=== PATIENT | male | born 1970 | race Hispanic/Latino ===

== ENCOUNTER 2017-04-12 08:26 | Observation (INO) | payer BC ==
[2017-04-12 08:26] VITALS: BMI 30.8
[2017-04-12] MEDS ORDERED: Morphine 2 mg/ml ISec IVP STA ×3 (08:55→12:48)
--- NOTE | 2017-04-12 08:55 | ED PDOC ---
Arrival/HPI - General Chief Complaint: Abdominal Pain Time Seen by Provider: 04/12/17 08:35 - History of Present Illness Narrative History of Present Illness (Text): 04/12/17 08:35 Tyler Garcia is a 46 year old male, whose past medical history includes a kidney stone (2013), who presents to the emergency department of sudden onset of RLQ pain radiating to his lateral lower back since this morning. Patient states that he also experiences associated nausea. Patient states pain is sharp , stabbing, constant. Denies chest pain or shortness of breath. Denies numbness or weakness. Denies testicular pain or swelling. Denies hematuria. Denies trauma. Also reports sore throat for three days. Denies cough or hemoptysis. PMD: None Time/Duration: 1-3 hours Symptom Onset: Gradual Symptom Course: Unchanged Severity Level: Moderate Activities at Onset: Rest Context: Home Past Medical History - Provider Review Nursing Documentation Reviewed: Yes - Infectious Disease Hx of Infectious Diseases: None - Past Medical History Past Medical History: No Previous - Cardiac Hx Pacemaker: No - Neurological Hx Paralysis: No - Renal Hx Kidney Stones: Yes - Hematological/Oncological Hx Blood Transfusions: No - Musculoskeletal/Rheumatological Hx Musculoskeletal Disorders: No - Gastrointestinal Hx Gastroesophageal Reflux: Yes - Psychiatric Hx Emotional Abuse: No Hx Physical Abuse: No Hx Substance Use: No - Past Surgical History Past Surgical History: No Previous - Anesthesia Hx Anesthesia Reactions: No Hx Malignant Hyperthermia: No - Suicidal Assessment Feels Threatened In Home Enviroment: No Family/Social History - Physician Review Nursing Documentation Reviewed: Yes Family/Social History: No Known Family HX Smoking Status: Heavy Smoker > 10 Cigarettes Daily Hx Alcohol Use: No Hx Substance Use: No Allergies/Home Meds Allergies/Adverse Reactions: Allergies No Known Allergies Allergy (Verified 04/12/17 08:42) Review of Systems - Review of Systems Constitutional: absent: Fevers, Night Sweats Eyes: absent: Vision Changes ENT: Sore Throat, Sinus Congestion. absent: Hearing Changes, Voice Changes, Rhinorrhea Respiratory: absent: SOB Cardiovascular: absent: Chest Pain Gastrointestinal: Abdominal Pain (RLQ radiating to lateral back) Genitourinary Male: absent: Dysuria, Urinary Output Changes Musculoskeletal: Back Pain Skin: absent: Rash Neurological: absent: Headache Endocrine: absent: Diaphoresis Hemo/Lymphatic: absent: Adenopathy Psychiatric: absent: Anxiety Physical Exam - Physical Exam Narrative Physical Exam (Text): 04/12/17 08:35 Head: Atraumatic. Normocephalic. Eyes: PERRL. EOMI. Conjunctivae are not pale. ENT: Mild pharyngeal erythema. Mucous membranes are moist and intact. No stridor. Neck: Supple. Full ROM. No JVD. No lymphadenopathy. Cardiovascular: Regular rate. Regular rhythm. No murmurs, rubs, or gallops. Distal pulses are 2+ and symmetric. Pulmonary/Chest: No evidence of respiratory distress. Clear to auscultation bilaterally. No wheezing, rales or rhonchi. Abdominal: Reducible Abdominal hernia. No inguinal incarceration. No pulsatile masses. No palpable RLQ pain. No rebound or guarding. Back: No CVA tenderness. No midline tenderness or rash. Extremities: No edema. No cyanosis. No clubbing. Full range of motion in all extremities. No calf tenderness. Skin: Skin is warm and dry. No petechiae. No purpura. Neurological: Alert, awake, and oriented. Motor and sensory exam intact. Psychiatric: Good eye contact. Normal interaction, affect, and behavior. Vital Signs Reviewed: Yes Vital Signs Temp Pulse Resp BP Pulse Ox 04/12/17 15:00 87 17 151/90 H 100 04/12/17 13:00 98.8 F 59 L 17 165/84 H 100 04/12/17 11:14 98.3 F 56 L 18 145/86 98 04/12/17 08:42 97.7 F 69 18 143/93 H 98 Temperature: Afebrile Blood Pressure: Hypertensive Pulse: Regular Respiratory Rate: Normal Appearance: Positive for: Non-Toxic, Uncomfortable Pain Distress: Severe Mental Status: Positive for: Alert and Oriented X 3 Medical Decision Making ED Course and Treatment: 04/12/17 08:35 Impression: 46 year old male complaining of constant RLQ pain radiating to his lateral lower back since this morning. Differential Diagnosis include but are not limited to: Renal Colic vs. Pharyngitis Plan: -- CT Abdomen -- IV pain medication -- Reassess and disposition Prior Visits: Notes and results from previous visits were reviewed. Patient last seen in ED on 05/23/14 for 2 days duration of dull left flank pain. Patient was discharged home. Progress Notes: Patient in severe pain on arrival, not palpable, described as sudden onset. Radiates to right lower back. He is able to urinate, but pain is constant and severe. Treatment plan reviewed with patient. IV established as well as iv morphine, iv toradol and zofran given. 04/12/17 10:[address]: Creator : Rafael Parra MD FINDINGS: LOWER THORAX:Unremarkable. LIVER:Fatty infiltration. No gross lesion or ductal dilatation. GALLBLADDER AND BILE DUCTS:Unremarkable. PANCREAS:Unremarkable. No gross lesion or ductal dilatation. SPLEEN:Unremarkable. ADRENALS:Unremarkable. No mass. KIDNEYS AND URETERS:Punctate nonobstructive bilateral nephrolithiasis with minimal right hydronephrosis with an obstructive calculus in the distal right ureter measuring roughly 3 millimeters. VASCULATURE:Unremarkable. No aortic aneurysm. BOWEL:Unremarkable. No obstruction. No gross mural thickening. APPENDIX:Unremarkable. Normal appendix. PERITONEUM:Unremarkable. No free fluid. No free air. LYMPH NODES:Unremarkable. No enlarged lymph nodes. BLADDER:Unremarkable. REPRODUCTIVE:Unremarkable. BONES:No acute fracture. OTHER FINDINGS:None. IMPRESSION: Minimal right hydroureteronephrosis with a 3 millimeter obstructive calculus in the distal right ureter. 04/12/17 10:50 On reassessment, patient still has 7/10 pain. Additional pain medications will be given. Will continue to observe symptoms. Patient placed in ED observation. - Lab Interpretations I have reviewed the lab results: Yes - RAD Interpretation Officer Captain: Radiologist - Medication Orders Current Medication Orders: Sodium Chloride (Sodium Chloride 0.9%) 1,000 mls @ 100 mls/hr IV .Q10H JENN Last Admin: 04/12/17 09:09 Dose: 100 mls/hr Discontinued Medications Sodium Chloride (Sodium Chloride 0.9%) 1,000 mls @ 1,000 mls/hr IV .Q1H STA Stop: 04/12/17 13:47 Last Admin: 04/12/17 13:07 Dose: 1,000 mls/hr Ketorolac Tromethamine (Toradol) 30 mg IVP ONCE ONE Stop: 04/12/17 08:56 Last Admin: 04/12/17 09:08 Dose: 30 mg Re-Assess: [facility] Pain Assessment Document 04/12/17 10:08 APRIL (Rec: 04/12/17 11:02 APRIL [id number]) Pain Reassessment Is this a pain reassessment? Yes Presence of Pain Presence of Pain Yes Pain Scale Used Pain Scale Used Numeric Morphine Sulfate (Morphine) 2 mg IVP STAT STA Stop: 04/12/17 08:56 Last Admin: 04/12/17 09:08 Dose: 2 mg Re-Assess: [facility] Pain Assessment Document 04/12/17 10:08 ALA (Rec: 04/12/17 11:02 APRIL [id number]) Pain Reassessment Is this a pain reassessment? Yes Presence of Pain Presence of Pain Yes Pain Scale Used Pain Scale Used Numeric Morphine Sulfate (Morphine) 4 mg IV STAT STA Stop: 04/12/17 10:54 Last Admin: 04/12/17 11:00 Dose: 4 mg Re-Assess: [facility] Pain Assessment Document 04/12/17 12:00 ALA (Rec: 04/12/17 12:48 ALA [id number]) Pain Reassessment Is this a pain reassessment? Yes Morphine Sulfate (Morphine) 2 mg IVP STAT STA Stop: 04/12/17 12:49 Last Admin: 04/12/17 13:07 Dose: 2 mg Ondansetron HCl (Zofran Inj) 4 mg IVP ONCE ONE Stop: 04/12/17 08:56 Last Admin: 04/12/17 09:09 Dose: 4 mg ED OBSERVATION Discharge: Yes Date of observation admission: 04/12/17 Time of observation admission: 08:30 - Observation admission statement Patient is being placed in observation because:: Patient with severe flank and lower abdominal pain, history of kidney stones, for ct and serial exams. - Goals of Observation Goals of observation are:: Pain control, evaluation of ct imaging and re-evaluation of symptoms after iv pain medication. - Progress Note Progress Note: 04/12/17 12:44 Persistent but improved pain, will continue to observe. 04/12/17 15:34 Pain resolved. Tolerating po. CT findings and treatment plan reviewed with patient. Advised smoking cessation as well as need for follow-up with urologist. Will d/c with antibiotics as well for mild pharyngitis. Neck supple. Afebrile. Lungs clear. - Scribe Statement The provider has reviewed the documentation as recorded by the Vineet Zhou Provider Scribe Attestation: All medical record entries made by the Vineet were at my direction and personally dictated by me. I have reviewed the chart and agree that the record accurately reflects my personal performance of the history, physical exam, medical decision making, and the department course for this patient. I have also personally directed, reviewed, and agree with the discharge instructions and disposition. Disposition/Present on Arrival - Present on Arrival Any Indicators Present on Arrival: No History of DVT/PE: No History of Uncontrolled Diabetes: No Urinary Catheter: No History of Decub. Ulcer: No History Surgical Site Infection Following: None - Disposition Have Diagnosis and Disposition been Completed?: Yes Diagnosis: Renal colic on right side, Pharyngitis Disposition: HOME/ ROUTINE Disposition Time: 15:00 Patient Plan: Discharge Patient Problems: Current Active Problems Problem Status Onset Pharyngitis Acute Renal colic on right side Acute Condition: GOOD
[2017-04-12] MEDS ORDERED: Sodium Chloride 0.9% 1,000 ML IV SCH (09:00)
[2017-04-12 09:13] LABS: ADD MANUAL DIFF? NO
[2017-04-12 09:18] LABS: BASO # 0.06 K/mm3 (0.0-2.0); BASO % 0.6 % (0.0-3.0); EOS # 0.1 (0.0-0.7); EOS % 0.8 % (1.5-5.0); GRAN # 6.48 (1.4-6.5); LYMPH # 1.9 (1.2-3.4); LYMPH % 20.2 % (22.0-35.0); MEAN CELL VOLUME 90.7 fL (80.0-105.0); MEAN CORPUSCULAR HGB CONC 35.3 g/dl (31.0-37.0); MONO # 0.8 (0.1-0.6); MONO % 8.4 % (1.0-6.0); PLATELET COUNT 279 10^3/uL (120.0-450.0); WHITE BLOOD COUNT 9.3 10^3/ul (4.5-11.0)
[2017-04-12 09:27] LABS: ALB/GLOB RATIO 1.2 (1.1-1.8); ALKALINE PHOSPHATASE 90 U/L (38-133); ALT/SGPT 136 U/L (7-56); AST/SGOT 83 U/L (15-59); BILIRUBIN,TOTAL 0.6 mg/dL (0.2-1.3); BLOOD UREA NITROGEN 12 mg/dL (7-21); CALCIUM 9.7 mg/dL (8.4-10.5); CARBON DIOXIDE 23 mmol/L (21-33); CHLORIDE 106 mmol/L (98-107); GFR AFRICAN-AMERICAN > 60; GLUCOSE,RANDOM 112 mg/dL (70-110); POTASSIUM 4.5 mmol/L (3.6-5.0); SODIUM 141 mmol/L (132-148); TOTAL PROTEIN 8.5 g/dL (5.8-8.3)
[2017-04-12 09:39] LABS: PH,URINE 5.5 (4.7-8.0); URINE BILIRUBIN NEGATIVE (NEGATIVE); URINE BLOOD MODERATE (NEGATIVE); URINE GLUCOSE (UA) NEGATIVE (NEGATIVE); URINE KETONE NEGATIVE (NEGATIVE); URINE LEUKOCYTE ESTERASE NEGATIVE Leu/uL (NEGATIVE); URINE PROTEIN TRACE mg/dL (<30 mg/dL); URINE UROBILINOGEN 0.2 E.U./dL (<1 E.U./dL)
[2017-04-12 09:43] LABS: URINE APPEARANCE SL CLOUDY (CLEAR); URINE COLOR YELLOW (YELLOW)
[2017-04-12 09:50] LABS: URINE WBC 0 - 2 /hpf (0-6)
--- NOTE | 2017-04-12 09:58 | CT ---
PROCEDURE: CT Abdomen and Pelvis without intravenous contrast HISTORY: right flank pain COMPARISON: 05/23/2014. TECHNIQUE: Technique. Contrast Dose: Radiation dose: Total exam DLP = 1140 mGy-cm. This CT exam was performed using one or more of the following dose reduction techniques: Automated exposure control, adjustment of the mA and/or kV according to patient size, and/or use of iterative reconstruction technique. FINDINGS: LOWER THORAX: Unremarkable. LIVER: Fatty infiltration. No gross lesion or ductal dilatation. GALLBLADDER AND BILE DUCTS: Unremarkable. PANCREAS: Unremarkable. No gross lesion or ductal dilatation. SPLEEN: Unremarkable. ADRENALS: Unremarkable. No mass. KIDNEYS AND URETERS: Punctate nonobstructive bilateral nephrolithiasis with minimal right hydronephrosis with an obstructive calculus in the distal right ureter measuring roughly 3 millimeters. VASCULATURE: Unremarkable. No aortic aneurysm. BOWEL: Unremarkable. No obstruction. No gross mural thickening. APPENDIX: Unremarkable. Normal appendix. PERITONEUM: Unremarkable. No free fluid. No free air. LYMPH NODES: Unremarkable. No enlarged lymph nodes. BLADDER: Unremarkable. REPRODUCTIVE: Unremarkable. BONES: No acute fracture. OTHER FINDINGS: None. IMPRESSION: Minimal right hydroureteronephrosis with a 3 millimeter obstructive calculus in the distal right ureter.
[2017-04-12] MEDS ORDERED: Morphine 4 mg/ml ISec IV STA (10:53)
[2017-04-12] MEDS ORDERED: Sodium Chloride 0.9% 1,000 ML IV STA (12:48)
[2017-04-12 13:57] VITALS: RESP 17; TEMP 98.8; O2SAT 100
[2017-04-12 15:38] VITALS: BP 151/90; PULSE 87
== END 2017-04-12 15:36 | disposition home or self-care (01) ==
LOC: ED 08:26 → EROBSV 08:30
PROVIDERS: ADMIT Emergency Medicine; ATTEND Emergency Medicine
DX: N23 Unspecified renal colic (principal); J02.9 Acute pharyngitis, unspecified; F17.210 Nicotine dependence, cigarettes, uncomplicated
CPT/HCPCS: 74176; 80053; 81001; 85025; 96361; 96374; 96375; 96376; 99284; G0378; J1885; J2270; J2405; J7040